=== PATIENT | male | born 1945 | race Caucasian/White ===

== ENCOUNTER 2018-03-17 07:58 | Outpatient (CLI) | payer MEDICARE, BC ==
[~2018-03-17] VITALS: Ht 185.4 cm; Wt 129.5 kg
--- NOTE | ~2018-03-17 | OP ---
PATIENT NAME: ARIANA VELAZCO III MEDICAL RECORD: [id number] :45 LOCATION:D.CAT ADMISSION DATE: SURGEON: ADILENE VELASQUEZ MD DATE OF OPERATION: 03/18/2018 PROCEDURES: 1. PTCA stent RCA. 2. Selective coronary angiography. INDICATION: Angina and coronary artery disease. PROCEDURE IN DETAIL: After informed consent was obtained and after a detailed description of the risks, benefits as well as alternative therapies, the patient elected to proceed with angiogram and angioplasty. The right radial area was prepped and draped in normal sterile fashion. Right radial artery was cannulated via modified Seldinger technique with placement of 6-Moroccan sheath. All catheters exchanged through this sheath. FINDINGS: The RCA has multiple areas of 80% or greater stenosis. This was confirmed by intravascular ultrasound. This was addressed with going distal to proximal 2.5 x 38, 3.0 x 38, 3.5 x 38, 3.5 x 12 all Pal stents. Result was 0% residual stenosis. OVERALL IMPRESSION: Successful percutaneous transluminal coronary angioplasty stent of the right coronary artery going from multiple areas of 80% initial stenosis to 0% residual. TRANSINT:[id number] Voice Confirmation ID: [id number] DOCUMENT ID: [id number] ADILENE VELASQUEZ MD at 0924 CC: [id number] DICTATION DATE: 03/18/18 0835 ENTERTAINMENT MANAGER: 03/18/18 1156 DEP CLI 03/18/18 [place] [id number]
--- NOTE | ~2018-03-17 | DS ---
PATIENT:ARIANA VELAZCO III :45 MEDICAL RECORD: [id number] DISCHARGE SUMMARY ADMISSION DATE: 03/17/18 DISCHARGE DATE: 03/18/18 DIAGNOSES: 1. Angina. 2. Coronary artery disease. 3. Percutaneous transluminal coronary angioplasty and stent to the left anterior descending and right coronary artery this admission. HOSPITAL COURSE: Mr. Velazco presents with angina and new-onset atrial fibrillation, found to have disease of the LAD and RCA, underwent successful PTCA and stent of both territories, was discharged home with the addition of Plavix, Eliquis, and sotalol to his medical regimen. Follow up with [facility] in 2 weeks. TRANSINT:[id number] Voice Confirmation ID: [id number] DOCUMENT ID: [id number] ADILENE VELASQUEZ MD at 0924 CC: [id number] DICTATION DATE: 03/18/18 0834 SANITARY LANDFILL OPERATOR: 03/18/18 2100 DEP CLI 03/18/18 [place] [id number] [place] [address]
--- NOTE | ~2018-03-17 | HEMODYNAMI ---
PATIENT:ARIANA VELAZCO III MEDICAL RECORD: [id number] : 45 [address] [id number] ADMISSION DATE: 03/17/18 Generatedon:03/18/20188:37 Patient name: ARIANA VELAZCO Patient #: [id number] SSN: : 1945 Date of study: 03/18/2018 Page: Of Hemodynamic Procedure Report Patient Data Patient Demographics Procedure consent was obtained First Name: ARIANA Gender: Male Last Name: MORA Suffix: III Middle Initial: A : 1945 Patient #: [id number] Age: 72 year(s) Race: Unknown Additional ID: [id number] Contact details Address: [address] [place] [address] [facility] State: [place] City: [place] Zip code: [address] Past Medical History Allergies: No known allergies Admission Admission Data Admission Date: 03/17/2018 Admission Time: 7:58 Room #: [facility] Lab Results Lab Result Date: 03/17/2018 Lab Result Time: 10:15 Biochemistry Name Units Result Min Max BUN mg/dl 25 --(----)-* 7 18 Creatinine mg/dl 1.2 --(---*)-- 0.6 1.3 CBC Name Units Result Min Max Hematocrit % 41.5 -*(----)-- 42 54 Hemoglobin g/dl 14.6 --(-*--)-- 13.5 17.5 Procedure Procedure Types Cath Procedure Diagnostic Procedure FFR/IVUS Intra-Coronary IVUS Initial PCI Procedure Coronary Stent Coronary Stent Initial Procedure Description Procedure Date Procedure Date: 03/18/2018 Procedure Start Time: 8:13 Procedure End Time: 8:34 Procedure Staff Name Function Bony Curtis RT Monitor Alma Delia Babcock RN Nurse Sandip Reyes MD Performing Physician Gail Cortez RT Scrub Talisha Hoffman RN Nurse Procedure Data Cath Procedure Fluoroscopy Diagnostic fluoroscopy Total fluoroscopy Time: 5.3 time: 5.3 min min Diagnostic fluoroscopy Total fluoroscopy dose: 599 dose: 599 mGy mGy Contrast Material Contrast Material Type Amount (ml) Isovue 300 75 Entry Location Entry Primary Successful Side Size Upsize Upsize Entry Closure Melgoza ccessful Closure Location (Fr) 1 (Fr) 2 (Fr) Remarks Device Remarks Radial Right 6 Fr Mechanical artery Short Compression Estimated blood loss: 10 ml Procedure Complications No complications Procedure Medications Medication Administration Route Dosage Oxygen etCO2 Nasal cannula 2 l/min Lidocaine 2% added to field 20 Heparin Flush Bag added to field 2 bags (1000units/500ml NS) 0.9% NaCl I.V. 100 ml/hr Versed I.V. 1 mg Fentanyl I.V. 50 mcg Fentanyl I.V. 50 mcg Heparin Bolus I.V. 4000 units Versed I.V. 1 mg Radial Cocktail added to field 1 syringe (Verapomil 2mg/Nitro 400mcg/Heparin 1500units) Versed I.V. 1 mg Fentanyl I.V. 50 mcg Fentanyl I.V. 50 mcg Plavix P.O. 75 mg Hemodynamics Rest HGB: 14.6 (g/dl) Heart Rate: 87 (bpm) Snapshots Pre Cath Intra NCS Post Cath Vital Signs Time Heart Resp SPO2 etCO2 NIBP (mmHg) Rhythm Pain Sedation Rate (ipm) (%) (mmHg) Status Level (bpm) 8:05:42 90 14 95 36.5 152/99(132) A-Fib 0 (11) 10(A) , No pain 8:10:31 83 11 94 31.3 150/94(134) A-Fib 0 (11) 10(A) , No pain 8:15:25 80 17 96 32 134/84(114) A-Fib 0 (11) 9(A) , No pain 8:20:02 88 15 92 2.2 130/88(107) A-Fib 0 (11) 9(A) , No pain 8:24:45 90 12 94 2.9 139/84(115) A-Fib 0 (11) 9(A) , No pain 8:29:27 86 13 94 32.8 160/127(147) A-Fib 0 (11) 10(A) , No pain 8:34:22 73 12 95 39.5 172/103(126) A-Fib 0 (11) 10(A) , No pain Medications Time Medication Route Dose Verified Delivered Reason Note s Effectiveness by by 8:03:31 Oxygen etCO2 2 l/min Sandip Talisha used for Nasal Eric Hoffman procedure cannula RN 8:03:38 Lidocaine 2% added 20ml Sandip Oropeza for local to vial Eric Reyes MD anesthetic field 8:03:45 Heparin Flush added 2 bags Sandip Oropeza used for Bag to Eric Reyes MD procedure (1000units/500ml field NS) 8:03:55 0.9% NaCl I.V. 100 Sandip Buffie Per physician ml/hr Eric Babcock RN 8:04:10 Radial Cocktail added 1 Sandip Oropeza for (Verapomil to syringe Eric Reyes MD vasodilation 2mg/Nitro field 400mcg/Hepari 8:11:37 Versed I.V. 1 mg Sandip Talisha for sedation Eric Hoffman RN 8:11:44 Fentanyl I.V. 50 mcg Sandip Talisha for sedation Eric Hoffman RN 8:15:09 Heparin Bolus I.V. 4000 Sandip Talisha for veri fied units Eric Hoffman anticoagulation with dr SANIA reyes 8:15:37 Fentanyl I.V. 50 mcg Sandip Talisha for sedation Eric Hoffman RN 8:16:30 Versed I.V. 1 mg Sandip Talisha for sedation Eric Hoffman RN 8:21:50 Versed I.V. 1 mg Sandip Talisha for sedation Eric Hoffman RN 8:21:56 Fentanyl I.V. 50 mcg Sandip Talisha for sedation Eric Hoffman RN 8:25:19 Fentanyl I.V. 50 mcg Sandip Talisha for sedation Eric Hoffman RN 8:32:13 Plavix P.O. 75 mg Sandip Talisha for Eric Hoffman antiplatelet RN therapy Procedure Log Time Note 7:31:45 Signed procedure consent form obtained from patient. 7:31:46 Time tracking: Regular hours (M-F 7:00 - 5:00) 7:31:51 Plan of Care:Hemodynamics will remain stable., Cardiac rhythm will remain stable., Comfort level will be maintained., Respiratory function will remain adequate., Patient/ family verbilizes understanding of procedure., Procedure tolerated without complication., Recovers from procedure without complications.. 7:32:12 H&P Date Dictated: 03/17/2018 Within 30 days and on chart.. 7:32:49 Patient allergic to No known allergies 7:40:41 Bony LIMA(R) sent for patient. Start room use. 7:56:02 Patient received from PCU to CCL 3 Alert and oriented. Tansferred to table in Supine position. 7:56:04 Correct patient and procedure confirmed by team. 7:56:04 Warm blankets applied, and michelle hugger turned on for patient comfort. 7:56:05 ECG and BP/O2 sat monitors applied to patient. 8:03:31 Oxygen 2 l/min etCO2 Nasal cannula was administered by Talisha Hoffman RN; used for procedure; 8:03:38 Lidocaine 2% 20ml vial added to field was administered by Sandip Reyes MD; for local anesthetic; 8:03:45 Heparin Flush Bag (1000units/500ml NS) 2 bags added to field was administered by Sandip Reyes MD; used for procedure; 8:03:55 0.9% NaCl 100 ml/hr I.V. was administered by Alma Delia Babcock RN; Per physician; 8:03:59 Vital chart was started 8:04:10 Radial Cocktail (Verapomil 2mg/Nitro 400mcg/Heparin 1500units) 1 syringe added to field was administered by Sandip Reyes MD; for vasodilation; 8:04:48 Baseline sample Acquired. 8:04:59 Rhythm: atrial fibrillation, atrial flutter 8:05:00 Full Disclosure recording started 8:05:01 Pre-procedure instructions explained to patient. 8:05:02 Pre-op teaching completed and patient verbalized understanding. 8:05:03 Family in patients room. 8:05:04 Patient NPO since Midnight. 8:05:05 Is the patient allergic to Iodine/contrast media? No. 8:05:07 Is patient on blood thinner?Yes 8:05:09 ACC The patient was administered the following blood thiners within the last 24 hours: ACCPlavix 8:05:11 Patient diabetic? Yes. 8:05:12 If diabetic: On Metformin? Yes 8:05:15 If on Metformin: Last Dose? 03/16/2018 8:05:18 Snore? Yes 8:05:18 Previous problem with sedation/anesthesia? No ? 8:05:20 Deviated septum? No 8:05:20 Sleep apnea? No 8:05:21 Opens mouth fully? Yes 8:05:22 Sticks out tongue? Yes 8:05:24 Airway obstruction? No ? 8:05:25 Dentures? No ? 8:05:28 Pre procedure: right dorsailis pedis pulse 1+ Palpable, but thready & weak; easily obliterated 8:05:30 Modified Curt's test Ulnar < 7 seconds 8:05:31 Patient pain scale 0/10 ?. 8:05:36 IV patent on arrival in left hand with 0.9% NaCl at [facility]. 8:05:38 Lab results completed and on chart. 8:05:40 Right Radial & Right Groin area was prepped with chlora-prep and draped in sterile fashion 8:05:42 Sharps counted by scrub and verified by R.N. 8:05:42 Alarms reviewed by R. N. 8:05:49 Use device set Radial Dx or PCI 8:05:52 Use device set TAUTH PCI 8:05:56 Tegaderm 4 x 4 ([id number]) opened to sterile field. 8:05:57 ACIST Hand Control (57042) opened to sterile field. 8:05:57 ACIST Manifold (93415) opened to sterile field. 8:05:59 Medline Cath Pack ([id number]) opened to sterile field. 8:05:59 ACIST Syringe (25447) opened to sterile field. 8:06:00 DIAGNOSTIC WIRE .035 260cm J wire (255084) opened to sterile field. 8:06:00 Bag Decanter (2002S) opened to sterile field. 8:06:01 MBrace Wrist Support ([id number]) opened to sterile field. 8:06:03 SHEATH 6Fr Prelude Radial ([id number]) opened to sterile field. 8:06:04 INFLATOR Merit BasixCompak (LX8682) opened to sterile field. 8:06:08 CHOICE PT Extra Support 182cm wire ([id number]) opened to sterile field. 8:08:53 Final Timeout: patient, procedure, and site verified with staff and physician. All members of the team are in agreement. 8:08:53 --------ALL STOP TIME OUT------ 8:08:55 Right Radial & Right Groin site verified by team. 8:08:58 Physical assessment completed. ASA score P 2 - A patient with mild systemic disease as per Sandip Reyes MD. 8:09:03 Sedation plan: IV Moderate Sedation Medication:Versed, Fentanyl 8:11:37 Versed 1 mg I.V. was administered by Talisha Hoffman RN; for sedation; 8:11:44 Fentanyl 50 mcg I.V. was administered by Talisha Hoffman RN; for sedation; 8:13:07 Procedure started. 8:13:12 Local anesthetic to right radial artery with Lidocaine 2% by Sandip Reyes MD.INITIAL ACCESS ONLY 8:14:21 A 6 Fr Short sheath was inserted into the Right Radial artery 8:14:31 GUIDE 6FR HS II SH catheter ([id number]) opened to sterile field. 8:14:58 6 Fr HS 2 SH guide catheter was inserted over the wire 8:15:09 Heparin Bolus 4000 units I.V. was administered by Talisha Hoffman RN; for anticoagulation; verified with dr reyes 8:15:37 Fentanyl 50 mcg I.V. was administered by Talisha Hoffman RN; for sedation; 8:15:56 GLIDE WIRE MERIT Angled 260cm ([id number]) opened to sterile field. 8:16:30 Versed 1 mg I.V. was administered by Talisha Hoffman RN; for sedation; 8:16:31 Glidewire used to advanced catheter. 8:18:54 [place] wire removed. 8:19:19 CPTXS wire advanced. 8:19:20 Wire advanced across lesion. 8:19:29 [place] IVUS Catheter (10728Z) opened to sterile field. 8:19:39 IVUS catheter advanced over wire. 8:19:43 IVUS pass to RCA lesion performed. 8:19:44 IVUS catheter removed over wire. 8:21:50 Versed 1 mg I.V. was administered by Talisha Hoffman RN; for sedation; 8:21:56 Fentanyl 50 mcg I.V. was administered by Talisha Hoffman RN; for sedation; 8:22:24 Place stent Inflation Number: 1 A ISA RX 2.5 x 38 stent ([id number]) was prepped and advanced across the Dist RCA. The stent was deployed at 13 IRENE for 0:10 (min:sec). 8:22:48 Stent catheter was removed intact over wire. 8:23:48 Place stent Inflation Number: 1 A ISA RX 3.0 x 38 stent ([id number]) was prepped and advanced across the Mid RCA. The stent was deployed at 15 IRENE for 0:10 (min:sec). 8:24:26 Stent catheter was removed intact over wire. 8:25:19 Fentanyl 50 mcg I.V. was administered by Talisha Hoffman RN; for sedation; 8:25:51 Place stent Inflation Number: 1 A ISA RX 3.5 x 38 stent ([id number]) was prepped and advanced across the Prox RCA. The stent was deployed at 15 IRENE for 0:10 (min:sec). 8:26:29 Inflation number: 2 The stent balloon was then re-inflated across the Prox RCA to 15 IRENE for 0:10 (min:sec). 8:27:51 Stent catheter was removed intact over wire. 8:28:08 Place stent Inflation Number: 3 A ISA RX 3.5 x 12 stent ([id number]) was prepped and advanced across the Prox RCA. The stent was deployed at 15 IRENE for 0:10 (min:sec). 8:29:41 TR BAND Standard ([id number]) opened to sterile field. 8:29:53 Wire removed. 8:29:53 Stent catheter was removed intact over wire. 8:29:54 Guide catheter removed. 8:30:04 Sheath removed intact; hemostasis achieved with Mechanical Compression to the Right Radial artery. 8:30:06 Procedure ended.(Physican Out) 8:30:34 Fluoroscopy time 05.30 minutes. 8:30:39 Fluoroscopy dose: 599 mGy 8:30:39 Flurop Dose total: 599 8:30:45 Contrast amount:Isovue 300 75ml. 8:30:46 Sharps counted by scrub and verified by R.N. 8:30:49 TR band inflated with 12cc of air. 8:30:50 Insertion/operative site no bleeding no hematoma. 8:30:52 Post Procedure Pulses reassessed and unchanged 8:30:55 Post-procedure physical assessment completed. ASA score P 2 - A patient with mild systemic disease as per Sandip Reyes MD. 8:30:57 Post procedure rhythm: unchanged. 8:31:00 Estimated blood loss: 10 ml 8:31:02 Patient needs reinforcement of post procedure teaching. 8:31:02 Post procedure instruction explained to patient.Patient verbalizes understanding. 8:31:16 Procedure and supply charges have been captured, reviewed, submitted and are correct. 8:31:18 Procedure Complication : No complications 8:32:13 Plavix 75 mg P.O. was administered by Talisha Hoffman RN; for antiplatelet therapy; 8:34:09 Vital chart was stopped 8:34:10 See physician's report for complete and final results. 8:34:15 Report given to PCU. 8:34:18 Patient transfered to PCU with Bed. 8:34:20 Full Disclosure recording stopped 8:34:20 Procedure ended. 8:34:25 End room use (Document Last) 8:37:09 Procedure type changed to Cath procedure, Diagnostic procedure, FFR/IVUS, Intra-Coronary IVUS Initial, PCI procedure, Coronary Stent, Coronary Stent Initial Intervention Summary Intervention Notes Time ActionType Lesion and Equipment Used Action# Pressure Duration Attributes 8:22:24 Place stent Dist RCA ISA RX 2.5 x 1 13 00:10 38 stent ([id number]) 8:23:48 Place stent Mid RCA ISA RX 3.0 x 1 15 00:10 38 stent ([id number]) 8:25:51 Place stent Prox RCA ISA RX 3.5 x 1 15 00:10 38 stent ([id number]) 8:26:29 Reinflate Prox RCA ISA RX 3.5 x 2 15 00:10 stent 38 stent balloon ([id number]) 8:28:08 Place stent Prox RCA ISA RX 3.5 x 3 15 00:10 12 stent ([id number]) Device Usage Item Name Manufacture Quantity Catalog Number Hospital Part Current Minimal Lot# / Charge Number Stock Stock Serial# Code Tegaderm 4 x 4 3M 1 1626W [id number] 176732 770640 5 (1626W) ACIST Manifold Acist 1 10755 063040 318777 676169 5 (58419) MyCube Inc ACIST Hand Acist 1 30717 754972 189519 769591 5 Control (04210) Medical Systems Inc ACIST Syringe Acist 1 98366 055329 339848 034441 20 (43190) Medical Systems Inc Medline Cath Cardinal 1 [id number] 491998 87467 896189 5 Pack Health ([id number]) Bag Decanter Microtek 1 2001S 870956 11985 684679 5 (2001S) Medical Inc. DIAGNOSTIC WIRE St Jourdan 1 027458 673540 968983 113317 30 .035 260cm J wire (247774) MBrace Wrist Advanced 1 140-0250-00 202316 73102 306237 5 Support Vascular ([id number]) Dynamics SHEATH 6Fr Merit 1 [id number] 042425 550711 223844 5 Prelude Radial Medical ([id number]) INFLATOR Merit Merit 1 AA1638 522981 559675 455680 15 [facility] (BB8941) CHOICE PT Extra [place] 1 [id number] 104180 628515 672191 5 Support 182cm Scientific wire ([id number]) GUIDE 6FR HS II Medtronic 1 [id number] 909450 46063 581714 1 SH catheter ([id number]) GLIDE WIRE Merit 1 [id number] 478289 841283 469329 5 MERIT Angled Medical 260cm ([id number]) [place] 1 [id number] 516326 442324 632782 8 [place] IVUS Catheter (59629M) ISA RX 2.5 x Medtronic 1 [id number] 366208 8317246 493212 5 [id number] 38 stent ([id number]) ISA RX 3.0 x Medtronic 1 [id number] 733581 3232560 286363 5 [id number] 38 stent ([id number]) ISA RX 3.5 x Medtronic 1 [id number] 827589 5051980 153842 5 [id number] 38 stent ([id number]) ISA RX 3.5 x Medtronic 1 [id number] 858942 4747105 130735 5 [id number] 12 stent ([id number]) TR BAND Terumo 1 [id number] 675846 147558 046773 40 Standard ([id number]) Signature Audit [place]arro Stage Time Signature Unsigned Intra-Procedure 03/18/2018 Bony Curtis RT(R) 8:34:49 AM RT(R) 03/18/2018 8:36:44 AM Intra-Procedure 03/18/2018 Bony Curtis 8:37:47 AM RT(R) Signatures Monitor : Bony Curtis RT Signature : Date : Time : [place] [id number] [place] [address]
--- NOTE | ~2018-03-17 | EC ---
PATIENT:ARIANA VELAZCO III DATE OF SERVICE: 03/17/18 SEX: M MEDICAL RECORD: [id number] DATE OF : 45 LOCATION:D.CAT AGE OF PATIENT: 72 ADMISSION DATE: 03/17/18 REFERRING PHYSICIAN: INTERPRETING PHYSICIAN: ADILENE REYES MD ECHOCARDIOGRAM REPORT ECHO CHARGES 4 ECHO COMPLETE Date: 03/17/18 CLINICAL DIAGNOSIS: AFIB/CAD ECHOCARDIOGRAPHIC MEASUREMENTS (adult normal given) AC root (d.<3.7cm) 4.1 cm LV Septum d (<1.2 cm> 1.6 cm Valve Excursion 1.4 cm LV Septum (systole) 1.7 cm Left Atria (s.<4.0cm> 4.6 cm LVPW d(<1.2cm) 1.6 cm RV (d.<2.3cm) 4.1 cm LVPW (sytole) 1.8 cm LV diastole(<5.6CM) 6.1 cm MV E-F(>70mm/sec) cm LV systole 4.6 cm LVOT Diameter 1.9 cm MV exc.(>10mm) 1.5 cm Est.ejection fraction (50-75%) % DOPPLER: LVIT cm/sec A 23.0 cm/sec E 89.0 cm/sec LA cm/sec RVSP mmHg LVOT 83 cm/sec AOP1/2T m/s Asc. Ao 229 cm/sec RVOT 80 cm/sec RA cm/sec PA 113 cm/sec AV Gradient Peak 21.04mmHg AV Mean 12.7 mmHg AV Area cm MV Gradient Peak 3.81 mmHg MV Mean 1.47 mmHg MV Area cm COMMENTS: Car Shagger: Jessica SIFUENTES Mine Safety Manager: 1 Dr. Reyes TAPE# PACS Pericardial Effusion N DATE OF SERVICE: 03/17/2018 PROCEDURE: Echocardiogram. FINDINGS: 1. Left ventricular chamber size is within normal limits. Left ventricular systolic function is normal. Overall ejection fraction estimated at 55%. 2. Left atrium is enlarged at 4.6 cm. Right atrium and right ventricular chamber sizes are moderately dilated. 3. Valvular structures: Aortic valve demonstrates mild calcific aortic ECHOCARDIOGRAM REPORT [id number] ARIANA VELAZCO III stenosis, valve area calculates to 1.5 cm-squared with gradient 21 mm across the valve. The remaining valvular structures have normal structure and motion. 4. Doppler interrogation elsewise reveals mild mitral regurgitation, no other valvular insufficiency or stenosis. 5. No evidence of pericardial effusion or left ventricular thrombus. TRANSINT:[id number] Voice Confirmation ID: [id number] DOCUMENT ID: [id number] ADILENE REYES MD at 0924 CC: [id number] DICTATION DATE: 03/18/18 1201 PLANT MAINTENANCE TECHNICIAN: 03/18/18 1210 DEP CLI 03/18/18 [place] [id number] [place] [address]
--- NOTE | ~2018-03-17 | HEMODYNAMI ---
PATIENT:ARIANA VELAZCO III MEDICAL RECORD: [id number] : 45 LOCATION:[facility] ADMISSION DATE: 03/17/18 Generatedon:03/17/201813:20 Patient name: ARIANA VELAZCO Patient #: [id number] SSN: : 1945 Date of study: 03/17/2018 Page: Of Hemodynamic Procedure Report Patient Data Patient Demographics Procedure consent was obtained First Name: ARIANA Gender: Male Last Name: MORA Suffix: III Middle Initial: A : 1945 Patient #: [id number] Age: 72 year(s) Race: Unknown Additional ID: [id number] Contact details Address: [address] [place] [address] [facility] State: [place] City: [place] Zip code: [address] Past Medical History Allergies: No known allergies Admission Admission Data Admission Date: 03/17/2018 Admission Time: 7:58 Lab Results Lab Result Date: 03/17/2018 Lab Result Time: 10:15 Biochemistry Name Units Result Min Max BUN mg/dl 25 --(----)-* 7 18 Creatinine mg/dl 1.2 --(---*)-- 0.6 1.3 CBC Name Units Result Min Max Hematocrit % 41.5 -*(----)-- 42 54 Hemoglobin g/dl 14.6 --(-*--)-- 13.5 17.5 Procedure Procedure Types Cath Procedure Diagnostic Procedure LHC LHC w/Coronaries FFR/IVUS Intra-Coronary IVUS Initial Sedation Charges Moderate Sedation up to 15 minutes PCI Procedure Coronary Stent Coronary Stent Initial Procedure Description Procedure Date Procedure Date: 03/17/2018 Procedure Start Time: 12:56 Procedure End Time: 13:18 Procedure Staff Name Function Sandip Reyes MD Performing Physician Justo Hernandez RT Monitor Omid Gabriel RN Nurse Sally Beck RT Scrub Mor Carney RT Word Processing Specialist Procedure Data Cath Procedure Fluoroscopy Diagnostic fluoroscopy Total fluoroscopy Time: 6.2 time: 6.2 min min Diagnostic fluoroscopy Total fluoroscopy dose: dose: 627.44 mGy 627.44 mGy Contrast Material Contrast Material Type Amount (ml) Isovue 300 131 Entry Location Entry Primary Successful Side Size Upsize Upsize Entry Closure Melgoza ccessful Closure Location (Fr) 1 (Fr) 2 (Fr) Remarks Device Remarks Radial Right 6 Fr Mechanical artery Short Compression Estimated blood loss: 10 ml Diagnostic catheters Device Type Used For End Catheter Placement DIAGNOSTIC [place] 110cm 5 Procedure Fr catheter ([id number]) DIAGNOSTIC Aqua Kang Procedure 125cm 5Fr catheter ([id number]) Procedure Complications No complications Procedure Medications Medication Administration Route Dosage Oxygen etCO2 Nasal cannula 2 l/min Heparin Flush Bag added to field 2 bags (1000units/500ml NS) 0.9% NaCl I.V. 100 ml/hr Radial Cocktail added to field 1 syringe (Verapomil 2mg/Nitro 400mcg/Heparin 1500units) Fentanyl I.V. 50 mcg Versed I.V. 1 mg Fentanyl I.V. 50 mcg Versed I.V. 1 mg Radial Cocktail I.A. 1 syringe (Verapomil 2mg/Nitro 400mcg/Heparin 1500units) Heparin Bolus I.V. 5000 units Integrilin (Bolus I.V. 11.3 ml 2mg/ml) Integrilin (Bolus wasted 8.7 ml 2mg/ml) Plavix P.O. 600 mg Hemodynamics Rest HGB: 14.6 (g/dl) Heart Rate: 76 (bpm) Pressure Samples Time Site Value (mmHg) Purpose Heart Use Rate(bpm) 12:59 LV 119/-7,14 Snapshot 96 Snapshots Pre Cath Intra NCS Post Cath Vital Signs Time Heart Resp SPO2 etCO2 NIBP (mmHg) Rhythm Pain Sedation Rate (ipm) (%) (mmHg) Status Level (bpm) 12:37:37 79 17 95 0 174/115(163) NSR 0 (11) 10(A) , No pain 12:42:23 78 17 96 37.3 176/118(152) NSR 0 (11) 10(A) , No pain 12:47:08 73 16 96 6.7 150/97(126) NSR 0 (11) 10(A) , No pain 12:51:41 76 16 95 14.9 148/103(125) NSR 0 (11) 10(A) , No pain 12:56:11 87 16 95 11.2 152/95(135) NSR 0 (11) 9(A) , No pain 13:00:39 69 17 94 35 138/93(124) NSR 0 (11) 9(A) , No pain 13:05:05 81 16 93 37.2 138/99(134) NSR 0 (11) 9(A) , No pain 13:09:32 73 16 96 37.2 142/95(117) NSR 0 (11) 9(A) , No pain 13:14:00 71 16 96 37.2 151/95(127) NSR 0 (11) 10(A) , No pain 13:16:42 83 16 96 37.2 156/105(126) NSR 0 (11) 10(A) , No pain Medications Time Medication Route Dose Verified Delivered Reason Not es Effectiveness by by 12:39:26 Oxygen etCO2 2 l/min Sandip Anne Per physician Nasal Eric Gabriel RN cannula 12:39:34 Heparin Flush added 2 bags Sandip Anne used for Bag to Eric Gabriel RN procedure (1000units/500ml field NS) 12:39:43 0.9% NaCl I.V. 100 Sandip Anne Per physician ml/hr Eric Gabriel RN 12:39:51 Radial Cocktail added 1 Sandip Anne used for (Verapomil to syringe Eric Gabriel RN procedure 2mg/Nitro field 400mcg/Heparin 1500units) 12:46:57 Fentanyl I.V. 50 mcg Sandip Anne for sedation Eric Gabriel RN 12:47:19 Versed I.V. 1 mg Sandip Anne for sedation Eric Gabriel RN 12:52:17 Fentanyl I.V. 50 mcg Sandip Anne for sedation Eric Gabriel RN 12:52:21 Versed I.V. 1 mg Sandip Anne for sedation Eric Gabriel RN 12:57:28 Radial Cocktail I.A. 1 Sandip Oropeza for (Verapomil syringe Eric Reyes MD vasodilation 2mg/Nitro 400mcg/Heparin 1500units) 13:05:22 Heparin Bolus I.V. 5000 Sandip Anne for units Eric Gabriel RN anticoagulation 13:09:21 Integrilin I.V. 11.3 ml Sandip reza (Bolus 2mg/ml) Eric Gabriel RN antiplatelet therapy 13:11:29 Integrilin wasted 8.7 ml Sandip reza (Bolus 2mg/ml) Eric Gabriel RN antiplatelet therapy 13:15:22 Plavix P.O. 600 mg Sandip Anne for Eric Gabriel RN antiplatelet therapy Procedure Log Time Note 12:13:42 Justo Hernandez RT(R) sent for patient. Start room use. 12:23:43 Time tracking: Regular hours (M-F 7:00 - 5:00) 12:23:47 Plan of Care:Hemodynamics will remain stable., Cardiac rhythm will remain stable., Comfort level will be maintained., Respiratory function will remain adequate., Patient/ family verbilizes understanding of procedure., Procedure tolerated without complication., Recovers from procedure without complications.. 12:29:54 Patient received from Pre/Post Procedure Room to [facility] 3 Alert and oriented. Tansferred to table in Supine position. 12:29:55 Warm blankets applied, and michelle hugger turned on for patient comfort. 12:29:56 Correct patient and procedure confirmed by team. 12:29:57 Signed procedure consent form obtained from patient. 12:29:58 ECG and BP/O2 sat monitors applied to patient. 12:29:58 Full Disclosure recording started 12:36:00 Vital chart was started 12:36:17 Baseline sample Acquired. 12:36:19 Rhythm: sinus rhythm 12:39:26 Oxygen 2 l/min etCO2 Nasal cannula was administered by Omid Gabriel RN; Per physician; 12:39:34 Heparin Flush Bag (1000units/500ml NS) 2 bags added to field was administered by Omid Gabriel RN; used for procedure; 12:39:43 0.9% NaCl 100 ml/hr I.V. was administered by Omid Gabriel RN; Per physician; 12:39:51 Radial Cocktail (Verapomil 2mg/Nitro 400mcg/Heparin 1500units) 1 syringe added to field was administered by Omid Gabriel RN; used for procedure; 12:44:38 H&P Date Dictated: 03/16/2018 Within 30 days and on chart., H&P Addendum completed by physician on day of procedure. (MUST COMPLETE FOR ALL OUTPATIENTS). 12:44:39 Pre-procedure instructions explained to patient. 12:44:39 Pre-op teaching completed and patient verbalized understanding. 12:44:40 Family in waiting room. 12:44:42 Patient NPO since Midnight. 12:44:48 Patient allergic to No known allergies 12:44:50 Is the patient allergic to Iodine/contrast media? No. 12:44:51 Is patient on blood thinner?No 12:44:53 Patient diabetic? Yes. 12:44:54 If diabetic: On Metformin? Yes 12:44:56 If on Metformin: Last Dose? 03/16/2018 12:45:00 Previous problem with sedation/anesthesia? No ? 12:45:01 Snore? Yes 12:45:02 Sleep apnea? No 12:45:03 Deviated septum? No 12:45:03 Opens mouth fully? Yes 12:45:04 Sticks out tongue? Yes 12:45:06 Airway obstruction? No ? 12:45:07 Dentures? No ? 12:45:10 Pre procedure: right dorsailis pedis pulse 2+ Normal; easily identifiable; not easily obliterated 12:45:12 Modified Curt's test Ulnar < 7 seconds 12:45:14 Patient pain scale 0/10 ?. 12:45:19 IV patent on arrival in left wrist with 0.9% NaCl at O. 12:45:54 Lab Result : BUN 25 mg/dl 12:45:54 Lab Result : Creatinine 1.2 mg/dl 12:45:54 Lab Result : Hemoglobin 14.6 g/dl 12:45:54 Lab Result : Hematocrit 41.5 % 12:45:57 Lab results completed and on chart. 12:46:06 Right Radial & Right Groin area was prepped with chlora-prep and draped in sterile fashion 12:46:07 Alarms reviewed by R. N. 12:46:07 Sharps counted by scrub and verified by R.N. 12:46:10 Use device set Radial Dx or PCI 12:46:11 ACIST Syringe (94818) opened to sterile field. 12:46:11 Medline Cath Pack ([id number]) opened to sterile field. 12:46:12 Bag Decanter (2002S) opened to sterile field. 12:46:12 ACIST Manifold (00565) opened to sterile field. 12:46:13 ACIST Hand Control (47840) opened to sterile field. 12:46:13 Tegaderm 4 x 4 (1626W) opened to sterile field. 12:46:14 MBrace Wrist Support ([id number]) opened to sterile field. 12:46:15 SHEATH 6Fr Prelude Radial ([id number]) opened to sterile field. 12:46:16 DIAGNOSTIC WIRE .035 260cm J wire (737512) opened to sterile field. 12:46:21 Physician arrived 12:46:22 --------ALL STOP TIME OUT------ :46:22 Final Timeout: patient, procedure, and site verified with staff and physician. All members of the team are in agreement. 12:46:28 Right Radial & Right Groin site verified by team. 12:46:30 Physical assessment completed. ASA score P 2 - A patient with mild systemic disease as per Sandip Reyes MD. 12:46:33 Sedation plan: IV Moderate Sedation Medication:Versed, Fentanyl 12:46:57 Fentanyl 50 mcg I.V. was administered by Omid Gabriel RN; for sedation; 12:47:19 Versed 1 mg I.V. was administered by Omid Gabriel RN; for sedation; 12:50:39 Zero performed for pressure channel P1 12:52:17 Fentanyl 50 mcg I.V. was administered by Omid Gabriel RN; for sedation; 12:52:21 Versed 1 mg I.V. was administered by Omid Gabriel RN; for sedation; 12:55:52 GLIDE WIRE MERIT Angled 260cm ([id number]) opened to sterile field. 12:56:05 Procedure started. 12:56:14 Local anesthetic to right radial artery with Lidocaine 2% by Sandip Reyes MD.INITIAL ACCESS ONLY 12:56:37 A 6 Fr Short sheath was inserted into the Right Radial artery 12:57:28 Radial Cocktail (Verapomil 2mg/Nitro 400mcg/Heparin 1500units) 1 syringe I.A. was administered by Sandip Reyes MD; for vasodilation; 12:58:17 A DIAGNOSTIC [place] 110cm 5 Fr catheter (386881) was advanced over the wire and used for Procedure. 12:59:46 glide wire wire advanced. 13:00:01 Wire removed. 13:00:04 LV gram done using GALLEGOS 13:00:06 Injector settings: Ml/sec: 5, Volume: 15, 13:00:08 LV hemodynamics recorded. 13:00:12 EF : 50 % 13:00:24 RCA angiography performed. 13:02:29 Catheter exchanged over wire. 13:02:38 GUIDE 6FR XBLAD 3.5 catheter ([id number]) opened to sterile field. 13:02:43 INFLATOR Merit BasixCompak (NO2544) opened to sterile field. 13:02:51 CHOICE PT Extra Support 182cm wire ([id number]) opened to sterile field. 13:03:44 Marquette Tangirnaq Eagleye IVUS Catheter (73685F) opened to sterile field. 13:04:26 6 Fr xblad 3.5 guide catheter was inserted over the wire 13:04:31 LCA angiography performed. 13:04:39 choice pt es wire advanced. 13:04:41 Wire advanced across lesion. 13:05:18 IVUS catheter advanced over wire. 13:05:22 Heparin Bolus 5000 units I.V. was administered by Omdi Gabriel RN; for anticoagulation; 13:06:57 IVUS catheter removed over wire. 13:09:21 Integrilin (Bolus 2mg/ml) 11.3 ml I.V. was administered by Omid Gabriel RN; for antiplatelet therapy; 13:09:40 Place stent Inflation Number: 1 A ISA RX 2.5 x 38 stent ([id number]) was prepped and advanced across the Prox LAD. The stent was deployed at 15 IRENE for 0:10 (min:sec). 13:10:25 Stent catheter was removed intact over wire. 13:10:25 Wire removed. 13:10:28 Guide catheter removed. 13:11:29 Integrilin (Bolus 2mg/ml) 8.7 ml wasted was administered by Omid Gabriel RN; for antiplatelet therapy; 13:11:37 A DIAGNOSTIC [place] Connectionsa Kang 125cm 5Fr catheter ([id number]) was advanced over the wire and used for Procedure. 13:11:58 Left renal angiography performed. 13:12:33 Right renal angiography performed. 13:12:40 Catheter removed. 13:13:34 TR BAND Large ([id number]) opened to sterile field. 13:14:07 Sheath removed intact; hemostasis achieved with Mechanical Compression to the Right Radial artery. 13:14:09 Procedure ended.(Physican Out) 13:14:41 Fluoroscopy time 06.20 minutes. 13:14:58 Fluoroscopy dose: 627.44 mGy 13:14:58 Flurop Dose total: 627.44 13:15:02 Contrast amount:Isovue 300 131ml. 13:15:04 Sharps counted by scrub and verified by R.N. 13:15:06 Insertion/operative site no bleeding no hematoma. 13:15:13 Post right radial artery:stable, soft, clean and dry 13:15:16 Post Procedure Pulses reassessed and unchanged 13:15:19 Post-procedure physical assessment completed. ASA score P 2 - A patient with mild systemic disease as per Sandip Reyes MD. 13:15:21 Post procedure rhythm: unchanged. 13:15:22 Plavix 600 mg P.O. was administered by Omid Gabriel RN; for antiplatelet therapy; 13:15:37 Estimated blood loss: 10 ml 13:15:38 Post procedure instruction explained to patient.Patient verbalizes understanding. 13:15:39 Patient needs reinforcement of post procedure teaching. 13:16:02 Procedure type changed to Cath procedure, Diagnostic procedure, LHC, LHC w/Coronaries, FFR/IVUS, Intra-Coronary IVUS Initial, Sedation Charges, Moderate Sedation up to 15 minutes, PCI procedure, Coronary Stent, Coronary Stent Initial 13:18:41 Procedure and supply charges have been captured, reviewed, submitted and are correct. 13:18:43 Procedure Complication : No complications 13:18:45 Vital chart was stopped 13:18:45 See physician's report for complete and final results. 13:18:47 Report given to PCU. 13:18:50 Patient transfered to PCU with Stretcher. 13:18:51 Procedure ended. 13:18:51 Full Disclosure recording stopped 13:18:55 End room use (Document Last) Intervention Summary Intervention Notes Time ActionType Lesion and Equipment Used Action# Pressure Duration Attributes 13:09:[address] stent Prox LAD ISA RX 2.5 x 1 15 00:10 38 stent ([id number]) Device Usage Item Name Manufacture Quantity Catalog Number Hospital Part Current Minimal Lot# / Charge Number Stock Stock Serial# Code ACIST Syringe Acist 1 66323 796464 130602 951762 20 (28528) Medical Systems Inc Medline Cath Cardinal 1 [id number] 544436 19422 332366 5 Pack Health ([id number]) Bag Decanter Microtek 1 2001S 342192 05368 503094 5 (2001S) Medical Inc. ACIST Manifold Acist 1 79149 582543 288241 715959 5 (36194) Medical Systems Inc ACIST Hand Acist 1 18269 886362 298837 658718 5 Control (68018) Medical Systems Inc Tegaderm 4 x 4 3M 1 1626W 096824 357871 530580 5 (1626W) MBrace Wrist Advanced 1 140-0250-00 978817 46918 637826 5 Support Vascular (976383831) Dynamics SHEATH 6Fr Merit 1 [id number] 716418 519371 795223 5 Prelude Radial Medical ([id number]) DIAGNOSTIC WIRE St Jourdan 1 096682 695347 396033 401655 30 .035 260cm J wire (305193) DIAGNOSTIC Terumo 1 95-5793 917790 227891 939973 5 [place] 110cm 5 Fr catheter (894023) GLIDE WIRE Merit 1 [id number] 285908 822078 470878 5 [id number] MERIT Angled Medical 260cm ([id number]) GUIDE 6FR XBLAD Cardinal 1 [id number] 963104 641196 545692 10 3.5 catheter Health (36112754) INFLATOR Merit Merit 1 LC4987 570136 621813 030489 15 GentronixvaBritestream Networks Medical (RZ4576) CHOICE PT Extra Range 1 [id number] 239104 568451 768433 5 Support 182cm Scientific wire ([id number]) Marquette Marquette 1 50719C 508692 456240 164637 8 Tangirnaq Eagleye IVUS Catheter (65899C) ISA RX 2.5 x Medtronic 1 [id number] 568829 3247867 209544 5 [id number] 38 stent ([id number]) DIAGNOSTIC Aqua Cardinal 1 DNQ2376 287687 299800 174053 5 Kang 125cm Health 5Fr catheter ([id number]) TR BAND Large Terumo 1 [id number] 238163 573444 044733 40 ([id number]) Signature Audit [place] Stage Time Signature Unsigned Intra-Procedure 03/17/2018 Justo Hernandez 1:20:34 PM RT(R) Signatures Monitor : Justo Hernandez RT Signature : Date : Time : [place] [id number] [facility] [place] [address]
--- NOTE | ~2018-03-17 | OP ---
PATIENT NAME: ARIANA VELAZCO III MEDICAL RECORD: [id number] :45 LOCATION:D.[facility] ADMISSION DATE: SURGEON: ADILENE VELASQUEZ MD DATE OF OPERATION: 03/17/2018 PROCEDURES: 1. PTCA and stent, LAD. 2. Intravascular ultrasound. 3. Left heart catheterization. 4. Selective coronary angiography. 5. Left ventriculogram. INDICATIONS: Angina and coronary disease. PROCEDURE IN DETAIL: After informed consent was obtained with detailed description of risks and benefits as well as alternative therapies, the patient elected to proceed with angiogram and angioplasty. The right radial area was prepped and draped in normal sterile fashion. Right radial artery was cannulated via modified Seldinger technique with placement of 6-Sami sheath. All catheters were exchanged through this sheath. FINDINGS: The left ventriculogram was performed in standard 30-degree GALLEGOS view, reveals good cardiac wall motion throughout all segments. Overall ejection fraction is estimated at 50%. SELECTIVE CORONARY ANGIOGRAPHY: 1. Left main is with no significant angiographic disease. 2. Left anterior descending has greater than 80% stenosis throughout the mid vessel, confirmed by intravascular ultrasound. 3. Left circumflex has mild irregularities, but no flow-limiting stenosis. 4. Right coronary has multiple areas of 70% to 80% stenosis throughout the mid and mid distal vessel. PTCA AND STENT OF THE LAD: The stent used was 2.5 x 38 mm [place]. Result was 0% residual stenosis. OVERALL IMPRESSION: Successful PTCA and stent of the LAD, going from 80% initial stenosis to 0% residual. PLAN: PTCA and stent of the RCA in the near future. TRANSINT:[id number] Voice Confirmation ID: [id number] DOCUMENT ID: [id number] ADILENE VELASQUEZ MD at 0924 CC: [id number] DICTATION DATE: 03/17/18 1319 PATIENT NAVIGATOR: 03/17/18 1426 [facility] CLI 03/18/[address] [address]
[2018-03-17] MEDS ORDERED: LEVOTHYROXINE175 MCG PO (09:51)
[2018-03-17] MEDS ORDERED: GLUCOPHAGE500 MG PO (09:51)
[2018-03-17] MEDS ORDERED: BAYER CHEWABLE81 MG PO (09:53)
[2018-03-17 10:02] VITALS: BP 163/90; BMI 37.6
[2018-03-17 10:42] LABS: BASOPHILS 0.4 % (0-2); EOSINOPHILS 9.9 % (0-7); HEMATOCRIT 41.5 % (42.0-54.0); HEMOGLOBIN 14.6 g/dL (13.5-17.5); IMMATURE GRANULOCYTES 0.3 % (0-5); LYMPHOCYTES 18.9 % (15-50); MCHC 35.2 g/dL (31.0-37.0); MCV 88.1 fL (80.0-100.0); MEAN PLATELET VOLUME 9.4 fL (7.4-10.4); MONOCYTES 8.9 % (2-11); NEUTROPHILS 61.6 % (40-80); PLATELET COUNT 177 10x3/uL (130-400); RBC 4.71 10x6/uL (4.20-6.10); RDW 13.6 % (11.5-14.5); WBC 6.9 10x3/uL (4.8-10.8)
[2018-03-17 10:55] LABS: ANION GAP 9.3 mmol/L (8-16); CALCIUM 8.9 mg/dL (8.5-10.1); CARBON DIOXIDE 30.6 mmol/L (21.0-32.0); CREATININE - SERUM 1.2 mg/dL (0.6-1.3); POTASSIUM - SERUM 4.9 mmol/L (3.5-5.1)
[2018-03-17] MEDS ORDERED: HYDROCHLOROTHIA25 MG PO (10:59)
[2018-03-17] MEDS ORDERED: COZAAR100 MG PO (10:59)
[2018-03-17 17:19] VITALS: Ht 185.4 cm; Wt 129.5 kg
[2018-03-17 18:17] VITALS: BP 162/84
[2018-03-17 20:29] VITALS: BP 138/80
[2018-03-18] VITALS (11 sets, daily range): BP systolic 105–175; BP diastolic 57–88
[2018-03-18] MEDS ORDERED: PLAVIX75 MG PO (11:56)
[2018-03-18] MEDS ORDERED: ELIQUIS5 MG PO (11:57)
[2018-03-18] MEDS ORDERED: BETAPACE 80 MG80 MG PO (11:57)
== END 2018-03-18 18:30 | disposition home or self-care (01) ==
LOC: D.CATH 07:58 → D.M2 07:58 → D.CATH 10:00 → D.M2 14:06 → D.CATH 03-18 18:30
PROVIDERS: Internal Medicine Interventional Cardiology
DX: I25.119 Atherosclerotic heart disease of native coronary artery with unspecified angina pectoris (principal); Z01.812 Encounter for preprocedural laboratory examination
CPT/HCPCS: 92978 ×2; 93458; C9600 ×2

== ENCOUNTER → 2019-06-22 08:28 | Outpatient (CLI) | payer MEDICARE, BC ==
[2018-03-17 17:19] VITALS: BMI 32.6
[~2019-06-22 08:28] MED LIST: BAYER CHEWABLE81 MG PO; BETAPACE 80 MG80 MG PO; COZAAR100 MG PO; ELIQUIS5 MG PO; GLUCOPHAGE500 MG PO; HYDROCHLOROTHIA25 MG PO; LEVOTHYROXINE175 MCG PO; PLAVIX75 MG PO
== END | disposition home or self-care (01) ==
LOC: D.HCCECHO 08:28
PROVIDERS: ATTEND Internal Medicine Cardiovascular Disease
DX: I25.10 Atherosclerotic heart disease of native coronary artery without angina pectoris (principal)

== ENCOUNTER 2019-06-28 09:38 | Outpatient (CLI) | payer MEDICARE, BC ==
[~2019-06-28] VITALS: Ht 185.4 cm; Wt 128.6 kg
--- NOTE | ~2019-06-28 | HEMODYNAMI ---
PATIENT:ARIANA VELAZCO III MEDICAL RECORD: [id number] : 45 [id number] ADMISSION DATE: 06/28/19 Generatedon:06/28/201911:55 Patient name: ARIANA VELAZCO Patient #: [id number] SSN: : 1945 Date of study: 06/28/2019 Page: Of Hemodynamic Procedure Report Patient Data Patient Demographics Procedure consent was obtained First Name: ARIANA Gender: Male Last Name: MORA Suffix: DEEPAK Middle Initial: TANNER : 1945 Patient #: [id number] Age: 74 year(s) Race: Unknown Additional ID: [id number] Contact details [address]: [address] [place] [address] [place] State: [place] City: [place] Zip code: [address] Past Medical History Allergies: No known allergies Admission Admission Data Admission Date: 06/28/2019 Admission Time: 9:38 Height (in.): 73 BSA: 2.49 (m2) Height (cm.): 185.42 BMI: 37.23 (kg/m2) Weight (lbs.): 282.19 Weight (kg.): 128 Procedure Procedure Types Cath Procedure Diagnostic Procedure [facility] w/Coronaries FFR/IVUS FFR Initial Sedation Charges Moderate Sedation up to 30 minutes PCI Procedure Coronary Stent Coronary Stent Initial Coronary Atherectomy Atherectomy w/Stent Coronary Initial Procedure Description Procedure Date Procedure Date: 06/28/2019 Procedure Start Time: 11:15 Procedure End Time: 11:53 Procedure Staff Name Function Sandip Reyes MD Performing Physician Bony Curtis RT Monitor Elisabet Worley RN Nurse Alma Delia Babcock RN Nurse Jennifer Turner RT Scrub Procedure Data Cath Procedure Fluoroscopy Diagnostic fluoroscopy Total fluoroscopy Time: 9.9 time: 9.9 min min Diagnostic fluoroscopy Total fluoroscopy dose: dose: 1513 mGy 1513 mGy Contrast Material Contrast Material Type Amount (ml) Isovue 300 135 Entry Location Entry Primary Successful Side Size Upsize Upsize Entry Closure Melgoza ccessful Closure Location (Fr) 1 (Fr) 2 (Fr) Remarks Device Remarks Radial Right 6 Fr Mechanical artery Short Compression Estimated blood loss: 10 ml Diagnostic catheters Device Type Used For End Catheter Placement DIAGNOSTIC [place] 110cm 5 Procedure Fr catheter ([id number]) Procedure Complications No complications Procedure Medications Medication Administration Route Dosage Oxygen etCO2 Nasal cannula 2 l/min Lidocaine 2% added to field 20 Heparin Flush Bag added to field 2 bags (1000units/500ml NS) 0.9% NaCl I.V. 100 ml/hr Radial Cocktail added to field 1 syringe (Verapamil 2mg/Nitro 400mcg/Heparin 1500units) Versed I.V. 1 mg Fentanyl I.V. 50 mcg Versed I.V. 0.5 mg Fentanyl I.V. 25 mcg Heparin Bolus I.V. 4000 units Integrilin (Bolus I.V. 11.3 ml 2mg/ml) Versed I.V. 0.5 mg Fentanyl I.V. 25 mcg Plavix P.O. 600 mg Hemodynamics Rest BSA: 2.49 (m2) O2 Consumption: Estimated: 278.18 (ml/min) O2 Consumption indexed : Estimated:111.72 (ml/min/m) Heart Rate: 61 (bpm) Snapshots Pre Cath Intra NCS Post Cath Vital Signs Time Heart Resp SPO2 etCO2 NIBP (mmHg) Rhythm Pain Sedation Rate (ipm) (%) (mmHg) Status Level (bpm) 11:02:33 62 16 96 0 174/99(148) NSR 0 (11) 10(A) , No pain 11:07:13 62 20 96 0 159/103(122) NSR 0 (11) 10(A) , No pain 11:11:50 64 22 94 0 164/92(135) NSR 0 (11) 10(A) , No pain 11:16:25 63 16 95 0 162/94(129) NSR 0 (11) 10(A) , No pain 11:20:46 75 17 94 0 135/85(109) NSR 0 (11) 9(A) , No pain 11:25:09 63 19 96 0 146/91(124) NSR 0 (11) 9(A) , No pain 11:29:37 72 17 95 0 155/86(114) NSR 0 (11) 9(A) , No pain 11:34:07 62 18 94 0 154/89(121) NSR 0 (11) 9(A) , No pain 11:38:40 57 18 93 0 152/82(132) NSR 0 (11) 9(A) , No pain 11:43:06 57 16 95 0 153/93(118) NSR 0 (11) 9(A) , No pain 11:47:36 57 19 96 0 156/88(137) NSR 0 (11) 10(A) , No pain Medications Time Medication Route Dose Verified Delivered Reason Not es Effectiveness by by 11:01:24 Oxygen etCO2 2 l/min Sandip Buffie used for Nasal Eric Babcock RN procedure cannula 11:01:32 Lidocaine 2% added 20ml Sandip Sandip for local to vial Eric Reyes MD anesthetic field 11:01:39 Heparin Flush added 2 bags Sandip Oropeza used for Bag to Eric Reyes MD procedure (1000units/500ml field NS) 11:01:49 0.9% NaCl I.V. 100 Sandip Buffie Per physician ml/hr Eric Babcock RN 11:02:02 Radial Cocktail added 1 Sandip Sandip for (Verapamil to syringe Eric Reyes MD vasodilation 2mg/Nitro field 400mcg/Heparin 1500units) 11:15:00 Versed I.V. 1 mg Elisabet Elisabet for sedation Meir Worley RN RN 11:15:07 Fentanyl I.V. 50 mcg Elisabet Elisabet for sedation Meir Worley RN RN 11:17:44 Versed I.V. 0.5 mg Elisabet Elisabet for sedation Meir Worley RN RN 11:17:48 Fentanyl I.V. 25 mcg Elisabet Elisabet for sedation Meir Worley RN RN 11:25:26 Heparin Bolus I.V. 4000 Elisabet Elisabet for jayme ified units Meir Wroley anticoagulation with dr SANIA reyes 11:25:37 Integrilin I.V. 11.3 ml Elisabet Elisabet for Was ted8.7 (Bolus 2mg/ml) Meir Worley antiplatelet ml of RN RN therapy vial 11:35:11 Versed I.V. 0.5 mg Elisabet Elisabet for sedation Meir Worley RN RN 11:35:14 Fentanyl I.V. 25 mcg Elisabet Elisabet for sedation Meir Worley RN RN 11:47:31 Plavix P.O. 600 mg Elisabet Elisabet for Meir Worley antiplatelet RN RN therapy Procedure Log Time Note 10:30:30 Alma Delia Babcock RN sent for patient. Start room use. 10:41:32 Time tracking: Regular hours (M-F 7:00 - 5:00) 10:41:37 Plan of Care:Hemodynamics will remain stable., Cardiac rhythm will remain stable., Comfort level will be maintained., Respiratory function will remain adequate., Patient/ family verbilizes understanding of procedure., Procedure tolerated without complication., Recovers from procedure without complications.. 10:43:47 Patient Height : 73 inches 10:43:53 Patient Weight : 282.19 lbs 10:54:51 Patient received from Pre/Post Procedure Room to CCL 1 Alert and oriented. Tansferred to table in Supine position. 10:54:53 Signed procedure consent form obtained from patient. 10:54:54 Warm blankets applied, and michelle hugger turned on for patient comfort. 10:54:54 Correct patient and procedure confirmed by team. 10:54:55 ECG and BP/O2 sat monitors applied to patient. 11:01:04 Vital chart was started 11:01:24 Oxygen 2 l/min etCO2 Nasal cannula was administered by Alma Delia Babcock RN; used for procedure; Verbal order read back and verified. 11:01:32 Lidocaine 2% 20ml vial added to field was administered by Sandip Reyes MD; for local anesthetic; Verbal order read back and verified. 11:01:39 Heparin Flush Bag (1000units/500ml NS) 2 bags added to field was administered by Sandip Reyes MD; used for procedure; Verbal order read back and verified. 11:01:49 0.9% NaCl 100 ml/hr I.V. was administered by Alma Delia Babcock RN; Per physician; Verbal order read back and verified. 11:02:02 Radial Cocktail (Verapamil 2mg/Nitro 400mcg/Heparin 1500units) 1 syringe added to field was administered by Sandip Reyes MD; for vasodilation; Verbal order read back and verified. 11:07:32 Baseline sample Acquired. 11:07:34 Rhythm: sinus rhythm 11:07:35 Full Disclosure recording started 11:08:14 H&P Date Dictated: 06/14/2019 Within 30 days and on chart., H&P Addendum completed by physician on day of procedure. (MUST COMPLETE FOR ALL OUTPATIENTS). 11:08:15 Pre-procedure instructions explained to patient. 11:08:16 Pre-op teaching completed and patient verbalized understanding. 11:08:19 Family in waiting room. 11:08:21 Patient NPO since Midnight. 11:08:28 Is the patient allergic to Iodine/contrast media? No. 11:08:30 Is patient on blood thinner?No 11:08:32 ACC The patient was administered the following blood thiners within the last 24 hours: None 11:08:36 Previous problem with sedation/anesthesia? No ? 11:08:37 Snore? Yes 11:08:39 Sleep apnea? No 11:08:40 Deviated septum? No 11:08:40 Opens mouth fully? Yes 11:08:41 Sticks out tongue? Yes 11:08:57 Patient diabetic? Yes. 11:08:57 If diabetic: On Metformin? Yes 11:09:02 If on Metformin: Last Dose? 06/25/2019 11:09:05 Airway obstruction? No ? 11:09:07 Dentures? No ? 11:09:15 Pre procedure: right dorsailis pedis pulse 1+ Palpable, but thready & weak; easily obliterated 11:09:17 Modified Curt's test Ulnar < 7 seconds 11:09:19 Patient pain scale 0/10 ?. 11:09:24 IV patent on arrival in left forearm with 0.9% NaCl at KVO. 11:10:45 LABS ARE PENDING POST RE DRAW 11:11:21 Stress Test: yes; abnormal jai-infarct inferior and lateral, and reversible apical 11:12:29 Unable to do SCAI Risk assessment due to pending lab. 11:12:37 Right Radial & Right Groin area was prepped with chlora-prep and draped in sterile fashion 11:12:39 Alarms reviewed by R. N. 11:12:39 Sharps counted by scrub and verified by R.N. 11:12:47 Use device set Radial Dx or PCI 11:12:50 Tegaderm 4 x 4 (1626W) opened to sterile field. 11:13:26 ACIST Syringe (45942) opened to sterile field. 11:13:27 Medline Cath Pack ([id number]) opened to sterile field. 11:13:27 Bag Decanter () opened to sterile field. 11:13:27 ACIST Hand Control (05447) opened to sterile field. 11:13:28 ACIST Manifold (87260) opened to sterile field. 11:13:29 MBrace Wrist Support ([id number]) opened to sterile field. 11:13:30 EMERALD Guide Wire (118-889) opened to sterile field. 11:13:31 SHEATH 6FR RAIN (4811842) opened to sterile field. 11:13:44 Physician arrived 11:13:44 --------ALL STOP TIME OUT------ 11:13:45 Final Timeout: patient, procedure, and site verified with staff and physician. All members of the team are in agreement. 11:13:48 Right Radial & Right Groin site verified by team. 11:13:51 Fire Safety Assessment: A--An alcohol-based skin anteseptic being used preoperatively., C--Open oxygen or nitrous oxide is being used., D--An ESU, laser, or fiber-optic light is being used. 11:13:54 Physical assessment completed. ASA score P 2 - A patient with mild systemic disease as per Sandip Reyes MD. 11:13:58 Sedation plan: IV Moderate Sedation Medication:Versed, Fentanyl 11:14:18 No GFR due to pending lab. 11:14:49 Zero performed for pressure channel P1 11:14:52 Zero performed for pressure channel P1 11:14:55 Zero performed for pressure channel P1 11:14:57 Zero performed for pressure channel P1 11:15:00 Versed 1 mg I.V. was administered by Elisabet Worley RN; for sedation; Verbal order read back and verified. 11:15:00 Zero performed for pressure channel P1 11:15:06 Zero performed for pressure channel P1 11:15:07 Fentanyl 50 mcg I.V. was administered by Elisabet Worley RN; for sedation; Verbal order read back and verified. 11:15:38 Procedure started. 11:15:58 Local anesthetic to right radial artery with Lidocaine 2% by Sandip Reyes MD.INITIAL ACCESS ONLY 11:16:11 A 6 Fr Short sheath was inserted into the Right Radial artery 11:17:04 A DIAGNOSTIC [place] 110cm 5 Fr catheter ([id number]) was advanced over the wire and used for Procedure. 11:17:44 Versed 0.5 mg I.V. was administered by Elisabet Worley RN; for sedation; Verbal order read back and verified. 11:17:48 Fentanyl 25 mcg I.V. was administered by Elisabet Worley RN; for sedation; Verbal order read back and verified. 11:18:10 GLIDE WIRE Super Stiff Angled 260cm ([id number]) opened to sterile field. 11:18:25 [place] wire used to advance catheter. 11:19:54 Catheter advanced. [place] wire removed. 11:19:56 LV angiography performed. 11:19:59 LV gram done using GALLEGOS 11:20:05 EF : 60 % 11:20:11 Injector settings: Ml/sec: 5, Volume: 15, 11:20:14 LCA angiography performed. 11:21:21 Use device set TAU PCI 11:21:32 GUIDE 6FR XBLAD 3.5 catheter ([id number]) opened to sterile field. 11:21:34 INFLATOR Merit BasixCompak ([id number]) opened to sterile field. 11:21:36 [employer] Verrata Plus pressure wire (84888V) opened to sterile field. 11:23:35 RCA angiography performed. 11:23:37 ACCDominant side:Co-Dominant 11:23:39 Catheter removed. 11:23:59 6 Fr XBLAD 3.5 guide catheter was inserted over the wire 11:25:23 FFR/IFR wire advanced. 11:25:26 Heparin Bolus 4000 units I.V. was administered by Elisabet Worley RN; for anticoagulation; verified with dr reyes Verbal order read back and verified. 11:25:37 Integrilin (Bolus 2mg/ml) 11.3 ml I.V. was administered by Elisabet Worley RN; for antiplatelet therapy; Wasted8.7 ml of vial Verbal order read back and verified. 11:27:53 Wire advanced across lesion. 11:28:23 mLAD lesion measured at 0.81 with IFR 11:30:02 GUIDE 6FR HS I catheter (LA6HSI) opened to sterile field. 11:30:25 Pre PCI Site: [place] mLAD has 80% stenosis. 11:30:29 ACC Pre-intervention RATNA Flow is 3. 11:30:56 Place stent Inflation Number: 1 A ISA RX 2.25 x 18 stent ([id number]) was prepped and advanced across the Mid LAD 90. The stent was deployed at 15 IRENE for 0:10 (min:sec) 3. 11:31:09 Post PCI Site: [place] mLAD has 0% stenosis. 11:31:14 ACC Post-intervention RATNA Flow is 3. 11:31:21 Stent catheter was removed intact over wire. 11:31:21 Wire removed. 11:31:22 Guide catheter removed. 11:31:42 Asahi [place] 190cm wire opened to sterile field. 11:32:42 Pre PCI Site: [place] pRCA has 95% stenosis. 11:32:55 ACC Pre-intervention RATNA Flow is 3. 11:33:08 6 Fr HS 1 guide catheter was inserted over the wire 11:35:11 Versed 0.5 mg I.V. was administered by Elisabet Worley RN; for sedation; Verbal order read back and verified. 11:35:12 [place] 190 wire advanced. 11:35:14 Fentanyl 25 mcg I.V. was administered by Elisabet Worley RN; for sedation; Verbal order read back and verified. 11:35:23 Wire advanced across lesion. 11:35:55 LASER ELCA 0.9 Rx atherectomy catheter (668916) opened to sterile field. 11:38:18 Inflation number: 1 The stent balloon was then re-inflated across the Prox RCA 95 to 21 IRENE for 0:10 (min:sec) -1. 11:38:42 Stent catheter was removed intact over wire. 11:39:11 Laser pass to pRCA with Fluence of 80 and Rate of 40. 11:39:40 Laser pass to pRCA with Fluence of 80 and Rate of 40. 11:39:45 Laser pass to pRCA with Fluence of 80 and Rate of 40. 11:40:28 Laser pass to pRCA with Fluence of 80 and Rate of 40. 11:42:13 Laser catheter removed. 11:42:20 Laser total pulses delivered: 3200 11:42:24 Laser total treatment time: 1 minutes 20 seconds 11:42:54 Place stent Inflation Number: 2 A ISA RX 3.5 x 08 stent ([id number]) was prepped and advanced across the Prox RCA 95. The stent was deployed at 21 IRENE for 0:10 (min:sec) 0. 11:43:01 ZEPHYR REGULAR TR BAND (509684) opened to sterile field. 11:44:33 Post PCI Site: [place] pRCA has 0% stenosis. 11:44:39 ACC Post-intervention RATNA Flow is 3. 11:44:40 Stent catheter was removed intact over wire. 11:44:41 Wire removed. 11:44:42 Guide catheter removed. 11:44:51 Sheath removed intact; hemostasis achieved with Mechanical Compression to the Right Radial artery. 11:44:54 Procedure ended.(Physican Out) 11:46:12 Fluoroscopy time 09.90 minutes. 11:46:30 Fluoroscopy dose: 1513 mGy 11:46:30 Flurop Dose total: 1513 11:46:44 Dose Area Product 26755 mGy/cm. 11:46:50 Contrast amount:Isovue 300 135ml. 11:46:54 Maximum allowable dose exceeded? No. 11:46:58 Sharps counted by scrub and verified by R.N. 11:47:01 [place] band inflated with 10cc of air. 11:47:04 Insertion/operative site no bleeding no hematoma. 11:47:05 Post Procedure Pulses reassessed and unchanged 11:47:07 Post-procedure physical assessment completed. ASA score P 2 - A patient with mild systemic disease as per Sandip Reyes MD. 11:47:10 Post procedure rhythm: unchanged. 11:47:12 Estimated blood loss: 10 ml 11:47:15 Post procedure instruction explained to patient.Patient verbalizes understanding. 11:47:16 Patient needs reinforcement of post procedure teaching. 11:47:31 Plavix 600 mg P.O. was administered by Elisabet Worley RN; for antiplatelet therapy; Verbal order read back and verified. 11:47:47 Procedure type changed to Cath procedure, Diagnostic procedure, LHC, LHC w/Coronaries, FFR/IVUS, FFR Initial, Sedation Charges, Moderate Sedation up to 30 minutes, PCI procedure, Coronary Stent, Coronary Stent Initial, Coronary Atherectomy, Atherectomy w/Stent Coronary Initial 11:47:49 Procedure and supply charges have been captured, reviewed, submitted and are correct. 11:47:55 Procedure Complication : No complications 11:49:03 Vital chart was stopped 11:49:04 [facility] Findings: MVD- PCI performed (see procedure note) 11:49:11 Operative report dictated upon procedure completion. 11:49:12 See physician's report for complete and final results. 11:49:16 Report given to Pre/Post Procedure Room. 11:49:17 ACT drawn and resulted at 251 seconds. (normal therapeutic range 180-240 seconds). 11:49:21 Patient transfered to Pre/Post Procedure Room with Stretcher. 11:53:28 Procedure ended. 11:53:28 Full Disclosure recording stopped 11:53:34 End room use (Document Last) 11:54:03 End room use (Document Last) 11:54:25 End room use (Document Last) Intervention Summary Intervention Notes Time ActionType Lesion and Equipment Used Action# Pressure Duration Attributes 11:30:56 Place stent Mid LAD ISA RX 2.25 x 1 15 00:10 18 stent ([id number]) 11:38:18 Reinflate Prox RCA ISA RX 2.25 x 1 21 00:10 stent 18 stent balloon ([id number]) 11:42:54 Place stent Prox RCA ISA RX 3.5 x 2 21 00:10 08 stent ([id number]) Device Usage Item Name Manufacture Quantity Catalog Hospital Part Current Minimal Lot# / Number Charge Number Stock Stock Serial# Code Tegaderm 4 x 4 3M 1 1626W 085616 960013 574009 5 (1626W) ACIST Syringe Acist 1 82148 746464 788030 211873 20 (88057) Medical Systems Inc Medline Cath Medline 1 [id number] 839755 28253 144937 5 Pack ([id number]) Bag Decanter Microtek 1 2001S 006961 85697 973192 5 (2001S) Medical Inc. ACIST Hand Acist 1 29158 423059 447871 087759 5 Control Medical (83276) Systems Inc ACIST Manifold Acist 1 07302 615999 650799 649342 5 (32625) Medical Systems Inc MBrace Wrist Advanced 1 140-0250-00 749811 60662 014619 5 Support Vascular (453645987) Dynamics EMERALD Guide Cardinal 1 611-546 187726 495749 097786 5 Wire (029-444) Health SHEATH 6FR Cardinal 1 2033218 236641 1008106 754078 5 RAIN (1018033) Health DIAGNOSTIC Terumo 1 40-1713 068594 728435 959223 5 [place] 110cm 5 Fr catheter (450403) GLIDE WIRE Terumo 1 UM5186 933206 536816 179863 5 Super Stiff Angled 260cm (WD0727) GUIDE 6FR Cardinal 1 30326313 260347 694485 753323 10 XBLAD 3.5 Health catheter (61453797) INFLATOR Merit Merit 1 ZL1993 135737 691691 364055 15 [facility] (PK1588) [employer] 1 04206I 386273 554174169 402810 5 Verrata Plus pressure wire (57754X) GUIDE 6FR HS I Medtronic 1 LA6HSI 440161 43554 140484 1 catheter (LA6HSI) ISA RX 2.25 x Medtronic 1 [id number] 681555 1625610 203089 5 [id number] 18 stent ([id number]) [facility] Intecc 1 [id number] 803185 9041743 8023949 0 190cm wire LASER ELCA 0.9 Amie 1 110-004 462584 944448 692083 5 Rx atherectomy Healthcare catheter (079346) (254309) ISA RX 3.5 x Medtronic 1 [id number] 820591 5321565 367370 5 [id number] 08 stent ([id number]) ZEPHYR REGULAR Cardinal 1 480552 534962 8435574 762149 5 TR [facility] Xcalia (855070) Signature Audit Craig Stage Time Signature Unsigned Intra-Procedure 06/28/2019 Bony Curtis 11:54:03 AM RT(R) Intra-Procedure 06/28/2019 Alma Delia Babcock RN 11:54:25 AM Intra-Procedure 06/28/2019 Sandip Reyes 11:54:59 AM [facility] [address] [place] [address]
--- NOTE | ~2019-06-28 | OP ---
PATIENT NAME: ARIANA VELAZCO III MEDICAL RECORD: [id number] :45 LOCATION:D.CAT ADMISSION DATE: SURGEON: ADILENE VELASQUEZ MD DATE OF OPERATION: 06/28/2019 PROCEDURES: 1. Laser atherectomy RCA. 2. PTCA and stent RCA. 3. PTCA and stent LAD. 4. IFR LAD. 5. Left heart catheterization. 6. Selective coronary angiography. 7. Left ventriculogram. INDICATIONS: Angina and coronary artery disease. PROCEDURE IN DETAIL: After informed consent was obtained and after a detailed description of risks, benefits as well as alternative therapies, the patient elected to proceed with angiogram and angioplasty. The right radial area was prepped and draped in normal sterile fashion. Right radial artery was cannulated via modified Seldinger technique with placement of 6-Wallisian sheath. All catheters exchanged through this sheath. FINDINGS: The left ventriculogram was performed in standard 30-degree GALLEGOS view, reveals good cardiac wall motion, ejection fraction estimated 60%. SELECTIVE CORONARY ANGIOGRAPHY: 1. Left main is with no significant angiographic disease. 2. Left anterior descending has a previously placed stent that is widely patent with no significant restenosis; however, after the stent, there is 80% stenosis. IFR was abnormal. 3. Left circumflex has a chronic total occlusion in the mid vessel just after the first obtuse marginal. The first obtuse marginal was widely patent. Distal circumflex fills via right to left collaterals. 4. Right coronary has a previously placed stent with 95% in-stent restenosis proximally. PTCA STENT OF THE LAD: The stent used was a 2.25 x 18 mm Pal. Result was 0% residual stenosis. PTCA STENT AND LASER ATHERECTOMY OF THE RCA: Laser atherectomy was performed for the in-stent restenosis with a 0.9 laser catheter, multiple passes were made at 80/40. Stenting was undertaken with a 3.5 x 8 mm [place]. Result was 0% residual stenosis. OVERALL IMPRESSION: Successful percutaneous transluminal coronary angioplasty and stent and laser atherectomy of the RCA and successful PTCA and stent of the LAD. 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
[2019-06-28] MEDS ORDERED: NORVASC5 MG PO (10:23)
[2019-06-28 10:31] VITALS: BP 138/64; Ht 185.4 cm; Wt 128.6 kg
[2019-06-28 10:54] LABS: BASOPHILS 0.4 % (0-2); EOSINOPHILS 7.2 % (0-7); HEMATOCRIT 42.9 % (42.0-54.0); HEMOGLOBIN 14.8 g/dL (13.5-17.5); IMMATURE GRANULOCYTES 0.4 % (0-5); LYMPHOCYTES 17.7 % (15-50); MCH 30.2 pg (26.0-34.0); MCHC 34.5 g/dL (31.0-37.0); MCV 87.6 fL (80.0-100.0); MEAN PLATELET VOLUME 10.2 fL (7.4-10.4); MONOCYTES 9.6 % (2-11); NEUTROPHILS 64.7 % (40-80); PLATELET COUNT 158 10x3/uL (130-400); RDW 13.5 % (11.5-14.5); WBC 6.7 10x3/uL (4.8-10.8)
[2019-06-28 11:37] LABS: ANION GAP 9.4 mmol/L (8-16); CALCIUM 8.4 mg/dL (8.5-10.1); CARBON DIOXIDE 30.7 mmol/L (21.0-32.0); CHOL - HDL RATIO 4.1 ratio (2.3-4.9); CREATININE - SERUM 1.1 mg/dL (0.6-1.3); LDL-HDL RATIO 2.8 ratio (1.5-3.5); POTASSIUM - SERUM 4.1 mmol/L (3.5-5.1)
--- NOTE | 2019-06-28 12:05 | NUR ---
PATIENT ARRIVED TO ROOM 7, PLACED ON CM, VSS. RIGHT Z BAND IN PLACE, NO S/S OF BLEEDING OR HEMATOMA. WILL CONTINUE TO MONITOR. PHYSICIAN PREVIOUSLY AT BEDSIDE TO UPDATE PATIENT FAMILY.
--- NOTE | 2019-06-28 12:20 | NUR ---
PATIENT AWAKE, EATING TURKEY SANDWICH, NO N/V. VSS ON ROOM AIR. RIGHT Z BAND IN PLACE, NO S/S OF BLEEDING OR HEMATOMA. SPOUSE PRESENT AT BEDSIDE. NO C/O PAIN,N UMBNESS, OR TINGLING.
--- NOTE | 2019-06-28 12:20 | NUR ---
PATIENT RESTING, VSS ON ROOM AIR. RIGHT Z BAND IN PLACE, NO S/S OF BLEEDING OR HEMATOMA. NO C/O PAIN, NUMBNESS, OR TINGLING. NO N/V.
--- NOTE | 2019-06-28 12:50 | NUR ---
PATIENT INTERMITTENTLY RESTING, FAMILY PRESENT AT BEDSIDE. VSS ON ROOM AIR. RIGHT Z BAND IN PLACE,NO S/S OF BLEEDING OR HEMATOMA. NO C/O PAIN, NUMBNESS, OR TINGLING. NO N/V.
[2019-06-28] MEDS ORDERED: PLAVIX75 MG PO (13:11)
[2019-06-28] MEDS ORDERED: BAYER CHEWABLE81 MG PO (13:11)
--- NOTE | 2019-06-28 13:20 | NUR ---
PATIENT INTERMITTENTLY RESTING. VSS ON ROOM AIR. RIGHT Z BAND IN PLACE, NO S/S OF BLEEDING OR HEMATOMA. FAMILY PRESENT AT BEDSIDE. NO C/O PAIN, NUMBNESS, OR TINGLING. NO N/V.
--- NOTE | 2019-06-28 13:50 | NUR ---
PATIENT RESTING, FAMILY PRESENT AT BEDSIDE. NO S/S OF BLEEDING OR HEMATOMA AT RIGHT RADIAL SITE. NO C/O PAIN, NUMBNESS,OR TINGLING. NO N/V. VSS ON ROOM AIR.
--- NOTE | 2019-06-28 14:20 | NUR ---
PATIENT RESTING. VSS ON ROOM AIR. RIGHT RADIAL SITE IS CDI, NO S/S OF BLEEDING OR HEMATOMA. NO C/O PAIN, NUMBNESS, OR TINGLING. SPOUSE PRESENT AT BEDSIDE.
--- NOTE | 2019-06-28 14:45 | NUR ---
PATIENT RESTING, FAMILY PRESENT AT BEDSIDE. VSS ON 2L NC. NO C/O PAIN, NUMBNESS, OR TINGLING. NO N/V. TOLERATING PO FLUIDS. RIGHT GROIN DRESSING IS CDI, NO S/S OF BLEEDING OR HEMATOMA.
--- NOTE | 2019-06-28 14:50 | NUR ---
3CC OF AIR REMOVED FROM Z BAND, NO S/S OF BLEEDING OR HEMATOMA. NO C/O PAIN, NUMBNESS, OR TINGLING. NO N/V. VSS ON ROOM AIR.
--- NOTE | 2019-06-28 15:15 | NUR ---
PATIENT RESTING, VSS ON 2L NC. RIGHT GROIN DRESSING IS CDI, NO S/S OF BLEEDING OR HEMATOMA. FAMILY PRESENT AT BEDSIDE. NO C/O PAIN, NUMBNESS, OR TINGLING. NO N/V.
--- NOTE | 2019-06-28 15:20 | NUR ---
PATIENT INTERMITTENTLY RESTING, VSS ON ROOM AIR. RIGHT Z BAND IN PLACE, 3CC OF AIR REMOVED WITH NO S/S OF BLEEDING OR HEMATOMA. TOLERATING PO FLUIDS AND FOOD, NO N/V.
--- NOTE | 2019-06-28 15:30 | NUR ---
REMAINING AIR REMOVED FROM Z BAND, DRESSING APPLIED IS CDI, NO S/S OF BLEEDING OR HEMATOMA. NO C/O PAIN, NUMBNESS, OR TINGLING. IV REMOVED, PATIENT DISCONNECTED FROM MONITORS TO GET DRESSED.
--- NOTE | 2019-06-28 16:00 | NUR ---
PATIENT VOIDED WITHOUT DIFFICULTY. WRITTEN AND VERBAL DISCHARGE INSTRUCTIONS GIVEN TO PATIENT AND FAMILY, INCLUDING MEDICATION COMPLIANCE, CONFIRMED WITH PATIENT THAT PRESCRIPTION FOR PLAVIX HAS BEEN CALLED IN TO [facility] IN [place], [place] PER REQUEST AND WILL BE AVAILABLE FOR PICKUP. RIGHT RADIAL DRESSING IS CDI, NO S/S OF BLEEDING OR HEMATOMA.
--- NOTE | 2019-06-28 16:10 | NUR ---
PATIENT TRANSPORTED VIA WHEELCHAIR TO CAR WITH FAMILY DRIVING, ALL BELONGINGS WITH PATIENT.
== END 2019-06-28 16:10 ==
LOC: D.CATH 09:38
PROVIDERS: ATTEND Internal Medicine Interventional Cardiology
DX: I25.119 Atherosclerotic heart disease of native coronary artery with unspecified angina pectoris (principal); R06.00 Dyspnea, unspecified; I48.91 Unspecified atrial fibrillation
CPT/HCPCS: 93458; 93571; C9602; C9600

== ENCOUNTER → 2020-01-17 16:06 | Outpatient (CLI) | payer MEDICARE, BC ==
[2019-06-28 10:31] VITALS: BMI 37.4
[~2020-01-17 16:06] MED LIST changes: +NORVASC5 MG PO
== END | disposition home or self-care (01) ==
LOC: D.LAB 16:06
PROVIDERS: ATTEND Surgery
DX: Z11.59 Encounter for screening for other viral diseases (principal)

== ENCOUNTER → 2020-03-08 15:20 | Outpatient (CLI) | payer MEDICARE, BC ==
[2019-06-28 10:31] VITALS: BMI 37.4
== END | disposition home or self-care (01) ==
LOC: D.LABREF 15:20
PROVIDERS: ATTEND Otolaryngology
DX: J32.0 Chronic maxillary sinusitis (principal)